=== PATIENT | female | born 1985 | race Asian ===

== ENCOUNTER 2017-08-20 01:08 | Emergency (ER) | payer OTHER ==
[~2017-08-20] VITALS: Ht 167.6 cm; Wt 104.3 kg
[~2017-08-20 01:08] MED LIST: ADIPEX PO; HYDR25TA60 PO
[2017-08-20 02:14] VITALS: BP 140/80; TEMP 98.5
== END 2017-08-20 02:16 | disposition home or self-care (01) ==
LOC: ED 01:08
DX: S39.012A Strain of muscle, fascia and tendon of lower back, initial encounter (principal); X50.9XXA Other and unspecified overexertion or strenuous movements or postures, initial encounter
CPT/HCPCS: 96372; 99282; J1885

== ENCOUNTER 2022-02-24 15:38 | Emergency (ER) | payer OTHER ==
[~2022-02-24] VITALS: Ht 170.2 cm; Wt 111.6 kg
[2022-02-24 15:40] VITALS: BP 126/72; TEMP 97.1
== END 2022-02-24 16:47 | disposition home or self-care (01) ==
LOC: ED 15:38
DX: H10.89 Other conjunctivitis (principal)
CPT/HCPCS: 99283

== ENCOUNTER 2022-08-05 06:59 | Outpatient (CLI) | payer OTHER ==
[2022-08-05 07:19] LABS: PLATELET COUNT 360 K/uL (152-353)
== END 2022-08-05 19:15 | disposition home or self-care (01) ==
LOC: LABW 06:59
PROVIDERS: ATTEND Nurse Practitioner Family
DX: I10 Essential (primary) hypertension (principal); E78.49 Other hyperlipidemia; R53.81 Other malaise; R53.83 Other fatigue; Z13.1 Encounter for screening for diabetes mellitus; Z79.899 Other long term (current) drug therapy
CPT/HCPCS: 36415; 80053; 80061; 82306; 82607; 83036; 83735; 84439; 84443; 84481; 85027; 86376

== ENCOUNTER 2022-12-16 11:36 | Outpatient (CLI) | payer OTHER | END 2022-12-16 19:23 | disposition home or self-care (01) | LOC: RAD 11:36 | PROVIDERS: ATTEND Nurse Practitioner Family | DX: M54.59 Other low back pain (principal) ==

== ENCOUNTER 2023-03-10 17:01 | Outpatient (CLI) | payer OTHER | END 2023-03-10 19:30 | disposition home or self-care (01) | LOC: RAD 17:01 | PROVIDERS: ATTEND Nurse Practitioner Family | DX: R06.02 Shortness of breath (principal) ==